=== PATIENT | male | born 1940 | race Two or more races ===

== ENCOUNTER 2023-09-07 10:36 | Emergency (ER) | payer OTHER ==
[~2023-09-07] VITALS: Ht 177.8 cm; Wt 108.9 kg
[2023-09-07] MEDS ORDERED: SINGULAIR 5MG5 MG PO (10:41)
[2023-09-07] MEDS ORDERED: LEVOTHYROXINE25 MCG PO (10:41)
[2023-09-07] MEDS ORDERED: NORVASC2.5 M1 PO (10:41)
[2023-09-07] MEDS ORDERED: XARELTO10 MG PO (10:41)
[2023-09-07 12:03] LABS: HEMATOCRIT 45.4 % (39.0-48.0); HEMOGLOBIN 15.8 g/dL (13-16.00); MEAN CELL VOLUME 96.5 fL (80.0-100.00); MEAN CORPUSCULAR HEMOGLOBIN 33.6 pg (27.00-32.0); MEAN CORPUSCULAR HGB CONC 34.9 g/dl (32.0-36.0); PLATELET COUNT 143 K/uL (150-450); RED CELL DISTRIBUTION WIDTH 13.5 % (11.5-14.5)
[2023-09-07 13:07] LABS: INR 1.09; PARTIAL THROMBOPLASTIN TIME 34.5 SECONDS (22.0-34.0); PROTHROMBIN TIME 11.4 SECONDS (9.0-11.5)
[2023-09-07 13:27] LABS: CREATININE SERUM 1.03 mg/dL (0.70-1.30); GFR 69.14; POTASSIUM 3.96 mEq/L (3.5-5.1)
[2023-09-07 14:10] LABS: URINE EPITHELIAL CELLS 3.2 uL (0.0-38.8); URINE WBC 8.1 uL (0.0-23.2)
[2023-09-07 14:16] LABS: URINE APPEARANCE Clear; URINE BILIRRUBIN Negative (NEGATIVE); URINE BLOOD Negative; URINE COLOR Yellow; URINE GLUCOSE Negative (NEGATIVE); URINE LEUKOCYTE Trace; URINE NITRATE Negative; URINE PROTEIN Trace (NEGATIVE)
[2023-09-07 14:23] LABS: URINE BACTERIA 2.5 uL (0.0-1933)
== END 2023-09-07 17:39 | disposition home or self-care (01) ==
LOC: ER 10:36
PROVIDERS: Emergency Medicine
DX: K52.89 Other specified noninfective gastroenteritis and colitis (principal); I49.8 Other specified cardiac arrhythmias; I10 Essential (primary) hypertension; E78.00 Pure hypercholesterolemia, unspecified
CPT/HCPCS: 36415; 96365; 96366; 99284; J2405; J3490; J7030